=== PATIENT | female | born 1970 | race Caucasian/White ===

== ENCOUNTER 2016-05-03 20:15 | Emergency (ER) | payer SELFPAY ==
[2016-05-03 20:30] VITALS: BP 141/81
[2016-05-03] MEDS ORDERED: Azithromycin TAB* 250 MG PO ONE (22:10)
--- NOTE | 2016-05-03 22:25 | UC ---
Throat Pain/Nasal Josiah HPI - HPI Summary HPI Summary: RIGHT EAR PAIN SORE THROAT AND WHIOTE SPOTS IN RIGHT THROAT FOR THREE DAYS - History of Current Complaint Chief Complaint: UCRespiratory Stated Complaint: ST,EAR,CONGEST Time Seen by Provider: 05/03/16 21:14 Hx Obtained From: Patient Hx Last Menstrual Period: 11/03/15 Onset/Duration: Sudden Onset, Lasting Days, Still Present Severity: Moderate Cough: None Associated Signs & Symptoms: Positive: Dysphagia, Hoarseness - Epiglottits Risk Factors Epiglottis Risk Factors: Negative - Allergies/Home Medications Allergies/Adverse Reactions: Allergies Allergy/AdvReac Type Severity Reaction Status Date / Time Amoxicillin Allergy Hives Verified 05/03/16 20:31 Ampicillin Allergy Hives Verified 05/03/16 20:31 Penicillins Allergy Hives Verified 05/03/16 20:31 Sulfa Drugs Allergy Hives Verified 05/03/16 20:31 PMH/Surg Hx/FS Hx/Imm Hx Previously Healthy: Yes Endocrine History Of: Denies: Diabetes, Thyroid Disease Cardiovascular History Of: Denies: Cardiac Disorders, Hypertension Respiratory History Of: Denies: COPD, Asthma GI/ History Of: Denies: Ulcer Psychological History Of: Reports: Anxiety - Surgical History Surgical History: Yes Surgery Procedure, Year, and Place: ovarian cyst removed. csection - Family History Known Family History: Positive: Cardiac Disease, Hypertension, Diabetes Family History: NON CONTRIBUTORY - Social History Occupation: Employed Full-time Lives: With Family Alcohol Use: None Substance Use Type: None Smoking Status (MU): Light Every Day Tobacco Smoker Type: Cigarettes Amount Used/How Often: 1/2 ppd Length of Time of Smoking/Using Tobacco: since age 16 Have You Smoked in the Last Year: Yes Cessation Counseling: Patient Advised to Stop - Immunization History Most Recent Influenza Vaccination: never Review of Systems Constitutional: Negative Skin: Negative Eyes: Negative ENT: Sore Throat, Ear Ache Respiratory: Negative Cardiovascular: Negative Gastrointestinal: Negative Genitourinary: Negative Motor: Negative Neurovascular: Negative Musculoskeletal: Negative Neurological: Negative Psychological: Negative All Other Systems Reviewed And Are Negative: Yes Physical Exam Triage Information Reviewed: Yes Appearance: Well-Appearing, No Pain Distress, Well-Nourished Vital Signs: Initial Vital Signs Temp 98.9 F 05/03/16 20:26 Pulse 110 05/03/16 20:26 Resp 18 05/03/16 20:26 BP 141/81 05/03/16 20:26 Pulse Ox 100 05/03/16 20:26 Vital Signs Reviewed: Yes Eye Exam: Normal Eyes: Positive: Conjunctiva Clear ENT: Positive: TM dull, TM red, Tonsillar swelling, Tonsillar exudate Dental Exam: Normal Neck exam: Normal Neck: Positive: Supple, Nontender, Enlarged Nodes @ Respiratory Exam: Normal Respiratory: Positive: Chest non-tender, Lungs clear, Normal breath sounds, No respiratory distress, No accessory muscle use Cardiovascular Exam: Normal Cardiovascular: Positive: RRR, No Murmur Abdominal Exam: Normal Abdomen Description: Positive: Nontender, No Organomegaly Musculoskeletal Exam: Normal Neurological Exam: Normal Psychological Exam: Normal Psychological: Positive: Normal Response To Family Skin Exam: Normal Throat Pain/Nasal Course/Dx - Differential Dx/Diagnosis Differential Diagnosis/HQI/PQRI: Otitis Media, Pharyngitis, Sinusitis, URI Provider Diagnoses: RIGHT OTITIS MEDIA. TONSILLITIS Discharge - Discharge Plan Condition: Stable Disposition: HOME Prescriptions: Azithromycin TAB* [Zithromax TAB (Z-FCO) 250 mg #6 tabs] 250 mg PO DAILY #4 tab Patient Education Materials: Otitis Media (ED), Tonsillitis (ED) Referrals: Adalid Ragsdale NP [Primary Care Provider] -
== END 2016-05-03 22:21 | disposition home or self-care (01) ==
LOC: UCEAST 20:15
DX: H66.91 Otitis media, unspecified, right ear (principal); J03.90 Acute tonsillitis, unspecified; Z88.2 Allergy status to sulfonamides; Z88.0 Allergy status to penicillin; F17.210 Nicotine dependence, cigarettes, uncomplicated
CPT/HCPCS: 87651; 99212; A9270-GY; G0463

== ENCOUNTER 2016-07-18 16:34 | Observation (INO) | payer BC ==
[2016-07-18] MEDS ORDERED: NS 0.9% 1000 ML* 1,000 ML IV SCH (17:15)
[2016-07-18] MEDS ORDERED: Sucralfate TAB* 1 GM PO ONE (17:32)
[2016-07-18] MEDS ORDERED: Ondansetron INJ* 2 MG/ML VIAL IV ONE ×2 (17:32→19:26)
[2016-07-18 18:30] LABS: Hematocrit 38 % (35-47); Hemoglobin 12.5 g/dl (12.0-16.0); Mean Corpuscular HGB Conc 33 g/dl (31-36); Mean Corpuscular Hemoglobin 29 pg (27-31); Mean Corpuscular Volume 88 fL (80-97); Mean Platelet Volume 8 um3 (7.4-10.4); Red Blood Count 4.32 10^6/ul (4.0-5.4); Red Cell Distribution Width 14 % (10.5-15); White Blood Count 11.5 10^3/ul (3.5-10.8)
[2016-07-18 18:33] LABS: Add Diff/Slide Review? Slide Review Added; Comments Flag Yes
[2016-07-18 18:46] LABS: BUN/Creatinine Ratio 19.2 (8-20); C Reactive Protein 7.37 mg/L (< 5.00); Calcium 9.9 mg/dL (8.6-10.3); EGFR African American 164.7 (>60); EGFR Non-African American 128.1 (>60); Globulin 2.6 g/dL (2-4); Potassium 3.5 mmol/L (3.5-5.0); Total Bilirubin 0.5 mg/dL (0.2-1.0); Total Protein 6.6 g/dL (6.4-8.9)
[2016-07-18] MEDS ORDERED: Pantoprazole IV* 40 MG IV ONE (20:28)
[2016-07-18] MEDS ORDERED: HYDROmorphone* 1 MG/ML 1 ML SYR IV ONE (20:28)
--- NOTE | 2016-07-18 22:11 | RAD ---
Indication: RIGHT upper quadrant pain since yesterday. Comparison: No relevant prior exams available on the [facility]. Technique: RIGHT upper quadrant ultrasound. Report: Appropriate direction flow documented in the portal and hepatic veins. 16.8 cm liver is normal in echogenicity. Negative for focal hepatic lesions. Mild intrahepatic biliary dilatation. 9.0 mm common bile duct. No stones evident within the visualized common duct however the distal duct is not well visualized. Distended gallbladder with immobile approximate 2.7 cm stone at the gallbladder neck. 5.2 mm thickened gallbladder wall. Suggestion of biliary sludge at the fundus. No pericholecystic fluid evident. Negative for sonographic Bautista's sign. Mild prominence of the pancreatic duct at the visualized pancreatic body and tail measuring up to 2.5 mm diameter. Negative for ascites. 10.1 cm RIGHT kidney is unremarkable. IMPRESSION: Cholelithiasis with immobile stone at the gallbladder neck of gallbladder wall thickening as well as mild intra and extrahepatic biliary dilatation concerning for potential acute cholecystitis. Negative for pericholecystic fluid or sonographic Bautista's sign.
[2016-07-18] MEDS: HYDROmorphone* 1 MG/ML 1 ML SYR IV ONE ×2 (22:30→23:45)
[2016-07-18] MEDS ORDERED: HYDROmorphone* 1 MG/ML 1 ML SYR ONE (23:42)
[2016-07-18] MEDS ORDERED: HYDROmorphone* 1 MG/ML 1 ML SYR IV SLOW PU PRN (23:58)
[2016-07-18] MEDS ORDERED: Metoclopramide IV* 5 MG/ML 2 ML VIAL IV PRN (23:58)
[2016-07-19] MEDS ORDERED: Ciprofloxacin 400MG IVPREMIX(* 400 MG/200 ML BAG IVPB SCH ×2 (00:30→12:30)
[2016-07-19] MEDS ORDERED: metroNIDAZOLE IV 500 MG/100ML* 500 MG/100 ML BAG IVPB SCH ×2 (01:30→09:30)
[2016-07-19] MEDS: HYDROmorphone* 1 MG/ML 1 ML SYR IV PRN ×2 (01:54→04:26)
[2016-07-19] MEDS ORDERED: Metoclopramide IV* 5 MG/ML 2 ML VIAL IV PRN (02:52)
[2016-07-19] MEDS ORDERED: Ketorolac INJ* 15 MG/ML 1 ML VIAL IV PUSH ONE (08:52)
[2016-07-19] MEDS ORDERED: Ketorolac INJ* 30 MG/ML 1 ML VIAL ONE ×2 (08:54→12:32)
--- NOTE | 2016-07-19 10:38 | HP ---
CC: Adalid Ragsdale NP, [place], [place] DATE OF ADMISSION: 07/18/2016. DATE OF SURGERY: 07/19/2016. This patient was seen in room #346 at [facility] on July. CHIEF COMPLAINT: Abdominal pain. HISTORY OF PRESENT ILLNESS: The patient is a 46-year-old female who went to the [facility] yesterday complaining of abdominal pain. She states she was discharged home, but because the ab dominal pain worsened and it was associated with being nauseated, she went to [facility] Emergency Room. Gallbladder ultrasound was consistent with cholelithiasis with an immobile stone me asuring 2.7 cm at the gallbladder neck, gallbladder wall thickening, no pericholecystic fluid, mild biliary dilatation concerning for acute cholecystitis. She denied any vomiting. She had a formed b rown stool 07/18/2016. She denies any diarrhea. She denies any change in the color of urine or sto ol and denies any dysuria. She last ate solid food 07/17/2016. She has had no previous si milar episodes. Previous abdominal surgery includes section and open ovarian cystectomy. Mikel baxter was admitted for IV antibiotics and IV hydration. PAST MEDICAL HISTORY: Significant for smoking, migraine headaches, and gastritis treated with Ranit idine five months ago. PAST SURGICAL HISTORY: section 2006 in [place], open ovarian cystectomy at age 20. MEDICATIONS: 1. Ranitidine prn. 2. Excedrin prn. ALLERGIES: AMPICILLIN, AMOXICILLIN, AND SULFA. FAMILY HISTORY: Her brother had a cholecystectomy. No known anesthesia complications, bleeding ten dencies or blood clots in the family. SOCIAL HISTORY: She is single. She has two children, ages 23 and 13. She is a smoker of a half-a- pack of cigarettes per day for the past 30 years. She denies the use of alcohol or other substances . REVIEW OF SYSTEMS: Constitutional: No recent weight loss. No recent viral illnesses. Cardiovascu lar: No history of chest pain, palpitations, pressure or hypertension. Pulmonary: She is a smoker . No history of bronchitis or pneumonia. GI: She reports being diagnosed with "acute gastritis" fi ve months ago, treated with Ranitidine, which she takes occasionally. She denies any diarrhea, cons tipation or change in the color of stool. Genitourinary: Denies any dysuria, tea colored urine or history of kidney stones. Musculoskeletal: Denies any conditions or complaints. Neurologic: Charlie es any conditions or complaints. She denies any history of deep vein thrombosis or pulmonary emboli sm. Denies any history of anesthesia complications. Denies any bleeding tendencies and has never r eceived a blood transfusion. She is currently having her menstrual period. PHYSICAL EXAMINATION GENERAL: The patient is a 46-year-old female, well-developed, well-nourished, complaining of migrai ne headache. SKIN: Warm, dry, intact, anicteric. VITAL SIGNS: Height 5'4", weight 120 pounds. Blood pressure 116/63, pulse 76 and regular, respirat ory rate 16, temperature 98.2 tympanic. HEENT: Benign, anicteric sclerae. NECK: Supple. No cervical lymphadenopathy. BACK: No CVA tenderness. LUNGS: Breath sounds bilaterally clear and equal. HEART: Regular rate and rhythm. No murmurs or rubs appreciated. ABDOMEN: Active bowel sounds. Soft, flat, nontender throughout. No guarding. No obvious masses. Well-healed scars in the lower abdomen. No obvious organomegaly or evidence of hernia. EXTREMITIES: Warm without edema or skin ulceration. PELVIC: Exam deferred. RECTAL: Exam deferred. NEUROLOGIC: Alert and oriented times three. LABORATORY DATA: White blood cell count 11.5. Liver function test within normal limits. Serum pr egnancy negative. Gallbladder ultrasound consistent with cholelithiasis with an immobile stone at the gallbladder neck . Gallbladder wall thickening and mild biliary dilatation. IMPRESSION: Symptomatic cholelithiasis. PLAN: Per Dr. Benitez to the operating room today for a laparoscopic cholecystectomy. Dr. Benitez di scussed the nature of the surgical procedure, the relevant risks and benefits, the typical postopera tive care and recovery, and the patient has had a chance to ask questions and agrees with the plan. Time spent, with greater than 50 percent of it in direct [id number] contact with the patient, was one hour. LORNA LEACH NP [id number]/CPS #: [id number]
[2016-07-19] MEDS ORDERED: Clindamycin 900 MG IVPREMIX(* 900 MG/50 ML SDV IV ONE ×2 (11:34→13:23)
[2016-07-19] MEDS ORDERED: Bupivacaine 0.25% EPI 200,000* 30 ML SDV ONE (11:37)
[2016-07-19] MEDS ORDERED: Propofol* 10 MG/ML 20 ML BTL IV PUSH ONE (11:43)
[2016-07-19] MEDS ORDERED: Atracurium* 10 MG/ML 10 ML VIAL ONE (11:44)
[2016-07-19] MEDS ORDERED: fentaNYL* 50 MCG/ML 2 ML VIAL (100 MCG VIAL) ONE ×3 (11:44→13:36)
[2016-07-19] MEDS ORDERED: Midazolam* 1 MG/ML 5 ML VIAL (5 MG) ONE (11:45)
[2016-07-19] MEDS ORDERED: Dexamethasone IV* 4 MG/ML 1 ML (4 MG) ONE (12:07)
[2016-07-19] MEDS ORDERED: Ondansetron INJ* 2 MG/ML VIAL IV PRN (12:29)
[2016-07-19] MEDS ORDERED: HYDROmorphone* 1 MG/ML 1 ML SYR IV PRN (12:29)
[2016-07-19] MEDS ORDERED: oxyCODONE TAB* 5 MG TAB PO PRN (12:29)
[2016-07-19] MEDS ORDERED: fentaNYL* 50 MCG/ML 2 ML VIAL (100 MCG VIAL) IV PRN (12:29)
[2016-07-19] MEDS ORDERED: DiMENhydriNATE IV* 50 MG/ML VIAL IV PUSH PRN (12:29)
[2016-07-19] MEDS ORDERED: Ondansetron INJ* 2 MG/ML VIAL ONE (12:32)
[2016-07-19] MEDS ORDERED: Glycopyrrolate IV* 0.2 MG/ML 1 ML VIAL ONE (13:06)
[2016-07-19] MEDS ORDERED: Neostigmine Methylsulfate* 2 MG/2 ML SYRINGE ONE (13:06)
[2016-07-19] MEDS ORDERED: HYDROmorphone* 1 MG/ML 1 ML SYR ONE (13:36)
[2016-07-19] MEDS ORDERED: DiMENhydriNATE IV* 50 MG/ML VIAL ONE (13:41)
[2016-07-19 14:47] VITALS: BP 149/73
--- NOTE | 2016-07-20 00:41 | OP ---
DATE OF OPERATION: 07/19/16 - ROOM #346 DATE OF : 74 SURGEON: Brett Benitez MD EMBOSSING TOOLSETTER: Ana Jimenez NP ANESTHESIOLOGIST: Dr. Maki. ANESTHESIA: General anesthetic, local infiltration. PRE-OP DIAGNOSIS: Symptomatic cholelithiasis. POST-OP DIAGNOSES: Symptomatic cholelithiasis with acute cholecystitis. OPERATIVE PROCEDURE: Laparoscopic cholecystectomy. DESCRIPTION OF PROCEDURE: The patient was supine on the operative table. After adequate general anesthetic, compression stockings, Dedra Hugger warmer, and intravenous antibiotics, the abdomen was prepped and draped in the sterile fashion. Local infiltrative anesthesia was carried out in the umbilicus. A small umbilical incision was created. Blunt port cannula was placed. Insufflation was carried out with carbon dioxide. Additional cannulae; 12 mm subxiphoid, 5 mm right upper quadrant and right anterior axillary line were placed through small stab wounds under direct vision. The gallbladder was acutely inflamed and quite edematous. The areolar tissue was taken down off the cystic duct and cystic artery, which were readily identified, clipped and divided. The gallbladder was taken off the liver bed using electro-cautery. Again it was quite edematous, but the plane really was not too bad. There was a white bile forthcoming and the gallbladder was evacuated and placed into retrieval bag and brought out through the subxiphoid site, which needed to be enlarged for that purpose. The liver bed was made hemostatic with electrocautery and irrigation was carried out with warm saline solution. Free fluid was suctioned out. Hemostasis was again confirmed. The cannulae were removed. The two larger incisions were closed with 0 Polysorb and skin with 5- 0 Polysorb followed by Steri-Strips. She tolerated the procedure well, was awakened, and brought to Recovery in good condition. There were no complications. No drains. Pathologic specimen was gallbladder. Sponge and instrument counts were correct. Estimated blood loss was 100 mL. CC: Adalid Ragsdale NP* [id number]/[facility] #: [id number] [facility]
--- NOTE | 2016-07-22 17:22 | ED ---
Jeannie Fung Alok, scribed for Stuart Roberts MD on 07/18/16 at 1737 . Abdominal Pain/Female - HPI Summary HPI Summary: 46F presents to the ED from [facility] with a sudden onset of epigastric pain late last night at 2330. Pt adds nausea all day today and hasnt eaten. Pt last had similar symptoms 5 months ago for which Tums helped alleviate. Pt took Tums today which had no efect. PSHx includes caesarean section. PMHx includes h/o ovarian cysts. Pt states allergies to Amoxicillin, Ampicillin, and Sulfa Drugs. - History of Current Complaint Chief Complaint: EDAbdPain Stated Complaint: ABD PAIN Time Seen by Provider: 07/18/16 17:21 Hx Obtained From: Patient Hx Last Menstrual Period: 07/16/16 Onset/Duration: Sudden Onset, Lasting Hours, Still Present Timing: Constant Severity Initially: Moderate Severity Currently: Moderate Pain Intensity: 8 Pain Scale Used: 0-10 Numeric Location: Epigastric Alleviating Factor(s): Nothing Associated Signs and Symptoms: Positive: Nausea Allergies/Adverse Reactions: Allergies Allergy/AdvReac Type Severity Reaction Status Date / Time Amoxicillin Allergy Hives Verified 07/18/16 16:39 Ampicillin Allergy Hives Verified 07/18/16 16:39 Ciprofloxacin [From Cipro] Allergy Hives Verified 07/19/16 09:53 Penicillins Allergy Hives Verified 07/18/16 16:39 Sulfa Drugs Allergy Hives Verified 07/18/16 16:39 PMH/Surg Hx/FS Hx/Imm Hx Endocrine/Hematology History: Denies: Hx Diabetes, Hx Thyroid Disease Cardiovascular History: Denies: Hx Hypertension Respiratory History: Denies: Hx Asthma, Hx Chronic Obstructive Pulmonary Disease (COPD) GI History: Denies: Hx Ulcer Psychiatric History: Reports: Hx Anxiety - Surgical History Surgery Procedure, Year, and Place: ovarian cyst removed. Infectious Disease History: No Infectious Disease History: Denies: Hx Clostridium Difficile, Hx Hepatitis, Hx Human Immunodeficiency Virus (HIV), Hx of Known/Suspected MRSA, History Other Infectious Disease, Traveled Outside the [place] in Last 30 Days - Family History Known Family History: Positive: Cardiac Disease, Hypertension, Diabetes - Social History Occupation: Employed Full-time Alcohol Use: None Substance Use Type: Reports: None Smoking Status (MU): Heavy Every Day Tobacco Smoker Type: Cigarettes Amount Used/How Often: 1/2 ppd Length of Time of Smoking/Using Tobacco: since age 16 Have You Smoked in the Last Year: Yes Review of Systems Negative: Fever Positive: Abdominal Pain, Nausea All Other Systems Reviewed And Are Negative: Yes Physical Exam Triage Information Reviewed: Yes Vital Signs On Initial Exam: Initial Vitals Temp Pulse Resp BP Pulse Ox 98.5 F 99 18 131/90 100 07/18/16 16:36 07/18/16 16:36 07/18/16 16:36 07/18/16 16:36 07/18/16 16:36 Vital Signs Reviewed: Yes Appearance: Positive: Well-Appearing, No Pain Distress Skin: Positive: Warm, Skin Color Reflects Adequate Perfusion, Dry Head/Face: Positive: Normal Head/Face Inspection Eyes: Positive: Normal ENT: Positive: Normal ENT inspection Neck: Positive: Supple, Nontender Respiratory/Lung Sounds: Positive: Clear to Auscultation, Breath Sounds Present Cardiovascular: Positive: RRR Abdomen Description: Positive: Soft, Other: - Mild epigastric tenderness Bowel Sounds: Positive: Present Musculoskeletal: Positive: Normal Neurological: Positive: Normal Psychiatric: Positive: Normal, Affect/Mood Appropriate - Sara Coma Scale Coma Scale Total: 15 Diagnostics - Vital Signs Vital Signs Temp Pulse Resp BP Pulse Ox 07/18/16 16:52 98.5 F 99 18 131/90 100 07/18/16 16:36 98.5 F 99 18 131/90 100 - Laboratory Lab Results: Lab Results 07/18/16 07/18/16 07/18/16 Range/Units 18:20 18:20 18:20 WBC 11.5 H (3.5-10.8) 10^3/ul RBC 4.32 (4.0-5.4) 10^6/ul Hgb 12.5 (12.0-16.0) g/dl Hct 38 (35-47) % MCV 88 (80-97) fL MCH 29 (27-31) pg MCHC 33 (31-36) g/dl RDW 14 (10.5-15) % Plt Count 223 (150-450) 10^3/ul MPV 8 (7.4-10.4) um3 Neut % (Auto) 79.4 (38-83) % Lymph % (Auto) 8.9 L (25-47) % Jewell % (Auto) 3.4 (1-9) % Eos % (Auto) 1.6 (0-6) % Baso % (Auto) 6.7 H (0-2) % Absolute Neuts (auto) 9.2 H (1.5-7.7) 10^3/ul Absolute Lymphs (auto) 1.0 (1.0-4.8) 10^3/ul Absolute Monos (auto) 0.4 (0-0.8) 10^3/ul Absolute Eos (auto) 0.2 (0-0.6) 10^3/ul Absolute Basos (auto) 0.8 H (0-0.2) 10^3/ul Absolute Nucleated RBC 0 10^3/ul Nucleated RBC % 0 INR (Anticoag Therapy) 1.02 (0.89-1.11) Sodium 137 (133-145) mmol/L Potassium 3.5 (3.5-5.0) mmol/L Chloride 104 (101-111) mmol/L Carbon Dioxide 25 (22-32) mmol/L Anion Gap 8 (2-11) mmol/L BUN 10 (6-24) mg/dL Creatinine 0.52 (0.51-0.95) mg/dL Est GFR ( Amer) 164.7 (>60) Est GFR (Non-Af Amer) 128.1 (>60) BUN/Creatinine Ratio 19.2 (8-20) Glucose 115 H (70-100) mg/dL Lactic Acid (0.5-2.0) mmol/L Calcium 9.9 (8.6-10.3) mg/dL Total Bilirubin 0.50 (0.2-1.0) mg/dL AST 11 L (13-39) U/L ALT 7 (7-52) U/L Alkaline Phosphatase 52 (34-104) U/L C-Reactive Protein 7.37 H (< 5.00) mg/L Total Protein 6.6 (6.4-8.9) g/dL Albumin 4.0 (3.2-5.2) g/dL Globulin 2.6 (2-4) g/dL Albumin/Globulin Ratio 1.5 (1-3) Lipase 17 (11.0-82.0) U/L Beta HCG, Quant 0.95 mIU/mL 05/10/17 Range/Units 18:20 WBC (3.5-10.8) 10^3/ul RBC (4.0-5.4) 10^6/ul Hgb (12.0-16.0) g/dl Hct (35-47) % MCV (80-97) fL MCH (27-31) pg MCHC (31-36) g/dl RDW (10.5-15) % Plt Count (150-450) 10^3/ul MPV (7.4-10.4) um3 Neut % (Auto) (38-83) % Lymph % (Auto) (25-47) % Jewell % (Auto) (1-9) % Eos % (Auto) (0-6) % Baso % (Auto) (0-2) % Absolute Neuts (auto) (1.5-7.7) 10^3/ul Absolute Lymphs (auto) (1.0-4.8) 10^3/ul Absolute Monos (auto) (0-0.8) 10^3/ul Absolute Eos (auto) (0-0.6) 10^3/ul Absolute Basos (auto) (0-0.2) 10^3/ul Absolute Nucleated RBC 10^3/ul Nucleated RBC % INR (Anticoag Therapy) (0.89-1.11) Sodium (133-145) mmol/L Potassium (3.5-5.0) mmol/L Chloride (101-111) mmol/L Carbon Dioxide (22-32) mmol/L Anion Gap (2-11) mmol/L BUN (6-24) mg/dL Creatinine (0.51-0.95) mg/dL Est GFR ( Amer) (>60) Est GFR (Non-Af Amer) (>60) BUN/Creatinine Ratio (8-20) Glucose (70-100) mg/dL Lactic Acid 0.6 (0.5-2.0) mmol/L Calcium (8.6-10.3) mg/dL Total Bilirubin (0.2-1.0) mg/dL AST (13-39) U/L ALT (7-52) U/L Alkaline Phosphatase (34-104) U/L C-Reactive Protein (< 5.00) mg/L Total Protein (6.4-8.9) g/dL Albumin (3.2-5.2) g/dL Globulin (2-4) g/dL Albumin/Globulin Ratio (1-3) Lipase (11.0-82.0) U/L Beta HCG, Quant mIU/mL Result Diagrams: 07/18/16 18:20 07/18/16 18:20 Lab Statement: Any lab studies that have been ordered have been reviewed, and results considered in the medical decision making process. - Additional Comments Diagnostic Additional Comments: Gallbladder US - IMPRESSION: Cholelithiasis with immobile stone at the gallbladder neck of gallbladder wall thickening as well as mild intra and extrahepatic biliary dilatation concerning for potential acute cholecystitis. Negative for pericholecystic fluid or sonographic Bautista's sign. Abdominal Pain Fem Course/Dx - Course Course Of Treatment: Ms. Miller presented with about 20 hours of pain in the epigastrium. She was not tender in the RUQ but was tender in the epigastrium. She did not improve with GI meds and her labs were not very remarkable with only very slight increased CRP and WBCs. An U/S was obtained and showed an early cholecyctitis. - Diagnoses Provider Diagnoses: Cholecystitis - Provider Notifications Discussed Care Of Patient With: Dr. Gómez (Surgery) @ [id number] - Discussed pt condition and test results. Will admit pt Discharge - Discharge Plan Condition: Stable Disposition: ADMITTED TO [facility] documentation as recorded by the Jeannie buchanan Alok accurately reflects the service I personally performed and the decisions made by me, Stuart Roberts MD.
--- NOTE | 2016-07-25 11:30 | DS ---
DISCHARGE SUMMARY: DATE OF ADMISSION: 07/18/16 DATE OF DISCHARGE: 07/19/16 HISTORY: Patient is a 46-year-old female, came to the hospital the evening of 07/18/16 with evidence of cholecystitis. She was kept overnight in the hospital and taken to the operating room the next morning for a laparoscopic cholecystectomy. She had an uneventful course with rapid recovery and was discharged home the same afternoon. She is discharged home with instructions and will follow up in the office. Her pathology report did show evidence of cholelithiasis and cholecystitis. CC: Dr. Benitez; Adalid Ragsdale, DOMONIQUE* [id number]/[facility] #: [id number] MTDD
== END 2016-07-19 14:40 | disposition home or self-care (01) | DRG 263 ==
LOC: ED 16:34 → SSU 22:20 → INTOOBSV 22:20
PROVIDERS: ADMIT Surgery; ATTEND Surgery
DX: K80.00 Calculus of gallbladder with acute cholecystitis without obstruction (principal); F41.9 Anxiety disorder, unspecified; G43.909 Migraine, unspecified, not intractable, without status migrainosus; Z88.0 Allergy status to penicillin; Z88.2 Allergy status to sulfonamides; F17.210 Nicotine dependence, cigarettes, uncomplicated; Z82.49 Family history of ischemic heart disease and other diseases of the circulatory system; Z83.3 Family history of diabetes mellitus; K21.9 Gastro-esophageal reflux disease without esophagitis; Z32.02 Encounter for pregnancy test, result negative; R10.9 Unspecified abdominal pain
CPT/HCPCS: 36415; 76705; 80053; 81003; 83605; 83690; 84702; 85025; 85610; 86140; 88304; 94760; 96374; 96375; 96376; 99212; 99284; 99406; A9270-GY; G0378; G0463; J0744; J1100; J1170; J1240; J1885; J2250; J2405; J2704; J2765; J3010

== ENCOUNTER 2017-04-28 09:17 | Emergency (ER) | payer SELFPAY ==
[2017-04-28 09:30] VITALS: BP 129/81
--- NOTE | 2017-04-28 11:55 | UC ---
Maria Del Rosario Fung Gabriel, scribed for Kassandra Lr DO on 04/28/17 at 1009 . Throat Pain/Nasal Josiah HPI - HPI Summary HPI Summary: This patient is a 47 year old F presenting to [facility] with a chief complaint of head pressure since yesterday. The patient rates the pain 8/10 in severity. Patient reports rhinorrhea, right sided ear pain/face pain, post nasal drip, and maxillary sinus pressure. Patient denies fever, sore throat, diaphoresis, chills, n/v/d, and ABD pain. Pt took Sudafed and Excedrin at 0720 today. - History of Current Complaint Chief Complaint: UCGeneralIllness Stated Complaint: sinus congestion, and ear ache Time Seen by Provider: 04/28/17 09:55 Hx Obtained From: Patient Hx Last Menstrual Period: 04/24/17 Onset/Duration: Still Present Severity: Moderate Pain Intensity: 8 Pain Scale Used: 0-10 Numeric Associated Signs & Symptoms: Positive: Negative - rhinorrhea, right sided ear pain/face pain, post nasal drip, and maxillary sinus pressure, Other - fever, sore throat, diaphoresis, chills, n/v/d, and ABD pain - Allergies/Home Medications Allergies/Adverse Reactions: Allergies Allergy/AdvReac Type Severity Reaction Status Date / Time MS Amoxicillin [Amoxicillin] Allergy Hives Verified 04/28/17 09:30 MS Ampicillin [Ampicillin] Allergy Hives Verified 04/28/17 09:30 MS Ciprofloxacin [From Cipro] Allergy Hives Verified 04/28/17 09:30 MS Penicillins [Penicillins] Allergy Hives Verified 04/28/17 09:30 MS Sulfa Drugs [Sulfa Drugs] Allergy Hives Verified 04/28/17 09:30 Home Medications: Home Medications NK [No Home Medications Reported] 04/28/17 [History Confirmed 04/28/17] PMH/Surg Hx/FS Hx/Imm Hx Neurological History: Migraine Other History Of: HIV, Hepatitis B - Surgical History Surgical History: Yes Surgery Procedure, Year, and Place: ovarian cyst removed. . choly 2016 - Family History Known Family History: Positive: Cardiac Disease, Hypertension, Diabetes Negative: Respiratory Disease, Seizure Disorder Family History: NON CONTRIBUTORY - Social History Alcohol Use: None Substance Use Type: None Smoking Status (MU): Heavy Every Day Tobacco Smoker Type: Cigarettes Amount Used/How Often: 1/2 ppd Length of Time of Smoking/Using Tobacco: since age 16 Have You Smoked in the Last Year: Yes - Immunization History Most Recent Influenza Vaccination: never Most Recent Pneumonia Vaccination: never Review of Systems ENT: Ear Ache, Nasal Discharge, Sinus Congestion, Sinus Pain/Tenderness, Other - post nasal drip Neurological: Headache All Other Systems Reviewed And Are Negative: Yes Physical Exam Triage Information Reviewed: Yes Vital Signs: Initial Vital Signs Temp 98.9 F 04/28/17 09:24 Pulse 110 04/28/17 09:24 Resp 18 04/28/17 09:24 BP 129/81 04/28/17 09:24 Pulse Ox 100 04/28/17 09:24 Vital Signs Reviewed: Yes - Additional Comments Appearance: Well-Appearing, Mild to moderate pain distress Eyes: conjunctiva clear, no discharge ENT: Hearing grossly normal, no muffled/hoarse voice. (If she looks) TMs normal , negative tonsillar swelling, negative tonsillar exudate, negative trismus. ( If no otoscope write in for ENT: Hearing grossly normal, normal voice). Neck: Normal, Supple Respiratory/Lung Sounds: Lungs clear, Normal breath sounds, No respiratory distress, No accessory muscle use Cardiovascular: RRR, No murmur Abdomen (if she checks): Nontender, Soft, no guarding, not distended Bowel Sounds (if she checks): Present Musculoskeletal: Normal Neurological: Alert, muscle tone normal Psychiatric:Normal, age appropriate behavior Skin: Normal, Warm, Dry, Normal color Throat Pain/Nasal Course/Dx - Course Assessment/Plan: Dx sinusitis. Patient will be discharged and follow up from PCP. The patient is agreeable with this plan. Medications reviewed. Allergies reviewed. The patient has been encouraged to quit smoking. - Differential Dx/Diagnosis Provider Diagnoses: sinusitis Discharge - Discharge Plan Condition: Stable Disposition: HOME Patient Education Materials: Sinusitis (ED) Referrals: Adalid Rgasdale NP [Primary Care Provider] - 5 Days Additional Instructions: TRY USING THE NETTI POT IN THE MORNINGS DISCUSSED. YOU MUST ALWAYS USE CLEAN WATER. REMEMBER, POSTURE IS AN IMPORTANT FACTOR IN SINUS DRAINAGE. MOVE YOUR NECK, BREATHE. YOU MAY FIND THAT SYMPTOMS MIGHT IMPROVE MORE RAPIDLY WITH ACUPUNCTURE. The documentation as recorded by the Maria Del Rosario buchanan Gabriel accurately reflects the service I personally performed and the decisions made by me, Kassandra Lr DO.
== END 2017-04-28 10:30 | disposition home or self-care (01) ==
LOC: UCEAST 09:17
DX: J32.9 Chronic sinusitis, unspecified (principal); F17.210 Nicotine dependence, cigarettes, uncomplicated; Z88.0 Allergy status to penicillin; Z88.2 Allergy status to sulfonamides
CPT/HCPCS: 99212; G0463

== ENCOUNTER 2018-05-22 08:57 | Emergency (ER) | payer SELFPAY ==
[2018-05-22 09:15] VITALS: BP 116/79
[2018-05-22 10:21] LABS: Influenza A Molecular NEGATIVE (Negative); Influenza B Molecular NEGATIVE (Negative)
--- NOTE | 2018-05-22 10:26 | UC ---
Respiratory Complaint HPI - HPI Summary HPI Summary: 2 wks of a 'head cold' which she feels was getting better. Last night started w / hoarseness which has since resolved, coughing in chest, fever/chills. Has sick contacts at work. nothing makes it better/worse. has tried few otc meds but these symptoms just started and shes not sure which is working. - History of Current Complaint Chief Complaint: UCGeneralIllness Stated Complaint: FLU LIKE SYMP Time Seen by Provider: 05/22/18 09:53 Hx Obtained From: Patient Hx Last Menstrual Period: 05/08/18 Pain Intensity: 0 Associated Signs And Symptoms: Positive: Fever, Chills, URI. Negative: Dyspnea , Wheezing - Allergies/Home Medications Allergies/Adverse Reactions: Allergies Allergy/AdvReac Type Severity Reaction Status Date / Time ciprofloxacin [From Cipro] Allergy streak iup Verified 05/22/18 09:16 vein Penicillins Allergy Rash Verified 05/22/18 09:16 Sulfa (Sulfonamide Allergy Rash Verified 05/22/18 09:16 Antibiotics) PMH/Surg Hx/FS Hx/Imm Hx Previously Healthy: Yes Other History Of: HIV, Hepatitis B - Surgical History Surgical History: Yes Surgery Procedure, Year, and Place: ovarian cyst removed. . choly 2016 - Family History Known Family History: Positive: Cardiac Disease, Hypertension, Diabetes Negative: Respiratory Disease, Seizure Disorder Family History: NON CONTRIBUTORY - Social History Alcohol Use: None Substance Use Type: None Smoking Status (MU): Heavy Every Day Tobacco Smoker Type: Cigarettes Amount Used/How Often: 1/2 ppd Length of Time of Smoking/Using Tobacco: since age 16 Have You Smoked in the Last Year: Yes - Immunization History Most Recent Influenza Vaccination: never Most Recent Pneumonia Vaccination: never Review of Systems All Other Systems Reviewed And Are Negative: Yes Constitutional: Positive: Fever, Chills. Negative: Fatigue ENT: Positive: Sore Throat. Negative: Ear Ache, Sinus Congestion Respiratory: Positive: Cough. Negative: Shortness Of Breath Cardiovascular: Positive: Negative Motor: Negative: Weakness Musculoskeletal: Negative: Myalgia Neurological: Negative: Headache, Weakness Physical Exam Triage Information Reviewed: Yes Appearance: Well-Appearing Vital Signs: Initial Vital Signs Temp 98.7 F 05/22/18 09:11 Pulse 102 05/22/18 09:11 Resp 20 05/22/18 09:11 BP 116/79 05/22/18 09:11 Pulse Ox 98 05/22/18 09:11 Vital Signs Reviewed: Yes ENT: Positive: Pharynx normal, TMs normal, Uvula midline. Negative: Sinus tenderness Neck exam: Normal Respiratory Exam: Normal Cardiovascular Exam: Normal Neurological: Positive: Alert Skin: Negative: Rashes Respiratory Course/Dx - Course Course Of Treatment: 2 wks of a 'head cold' and then last night started w/ feverish chills, cough in her chest. She recently was tx'd w/ antibx for pneumonia of LLL. Today lungs are clear, vitals good. NEG. FOR RAPID FLU. We did discuss that if she felt student sob or worsening breathing she should go to ED. For now I will tx her w / albuterol as this can help in smokers. could be the beginning of a gen viral illness. - Differential Dx/Diagnosis Differential Diagnosis/HQI/PQRI: Asthma, Bronchitis Provider Diagnosis: Cough Discharge - Sign-Out/Discharge Documenting (check all that apply): Patient Departure All imaging exams completed and their final reports reviewed: No Studies - Discharge Plan Condition: Good Disposition: HOME Prescriptions: Albuterol HFA INHALER* [Ventolin HFA Inhaler*] 1 - 2 puff INH Q4H PRN #1 mdi PRN Reason: Cough Patient Education Materials: Cold Symptoms (ED) Referrals: Adalid Ragsdale NP [Primary Care Provider] - Additional Instructions: please follow up with your primary care if not improving. - Billing Disposition and Condition Condition: GOOD Disposition: Home
== END 2018-05-22 10:40 | disposition home or self-care (01) ==
LOC: UCEAST 08:57
DX: R05 Cough (principal); R50.9 Fever, unspecified; F17.210 Nicotine dependence, cigarettes, uncomplicated; Z88.1 Allergy status to other antibiotic agents; Z88.0 Allergy status to penicillin; Z88.2 Allergy status to sulfonamides
CPT/HCPCS: 99212; G0463

== ENCOUNTER 2018-09-15 13:47 | Emergency (ER) | payer BC ==
[2018-09-15 14:07] VITALS: BP 155/91
--- NOTE | 2018-09-15 14:21 | UC ---
Dizzy HPI HPI Summary: Patient is a 48-year-old femalewho presents to the urgent care with chief complaint of having dizziness, "I am filling like I am going to pass out". The patient reports that this morning she woke up sweating, weak, and dizziness. she reports that she took an Excedrin and she went to work. At work the symptoms worsen. Now she feels like she is going to pass out, and she is feeling palpitations, and not feeling well. She denies any chest pain or shortness of breath. She denies any nausea vomiting or diarrhea. She denies any headache. She reports that she hasn't menstrual cycle now however, she reports that she took a test 2 weeks ago and he was positive. She denies any abdominal cramping. - History Of Current Complaint Chief Complaint: UCDizziness Stated Complaint: CHILLS/SWEATS Time Seen by Provider: 09/15/18 14:07 Hx Obtained From: Patient Hx Last Menstrual Period: 09/15/18 Onset/Duration: Sudden Onset Severity Initially: Mild Severity Currently: Moderate Pain Intensity: 0 - Allergies/Home Medications Allergies/Adverse Reactions: Allergies Allergy/AdvReac Type Severity Reaction Status Date / Time ciprofloxacin [From Cipro] Allergy streak iup Verified 09/15/18 14:07 vein Penicillins Allergy Rash Verified 09/15/18 14:07 Sulfa (Sulfonamide Allergy Rash Verified 09/15/18 14:07 Antibiotics) Home Medications: Home Medications Aspirin/Acetaminophen/Caffeine [Excedrin Extra Strength Caplet] 1 tab PO ONCE PRN 09/15/18 [History Confirmed 09/15/18] Ranitidine HCl (Nf) [Zantac] 1 tab PO DAILY PRN 09/15/18 [History Confirmed 10/27] PMH/Surg Hx/FS Hx/Imm Hx Previously Healthy: Yes Other History Of: HIV, Hepatitis B - Surgical History Surgical History: Yes Surgery Procedure, Year, and Place: ovarian cyst removed. . choly 2016 - Family History Known Family History: Positive: Cardiac Disease, Hypertension, Diabetes Negative: Respiratory Disease, Seizure Disorder Family History: NON CONTRIBUTORY - Social History Alcohol Use: None Substance Use Type: None Smoking Status (MU): Heavy Every Day Tobacco Smoker Type: Cigarettes Amount Used/How Often: 1/2 ppd Length of Time of Smoking/Using Tobacco: since age 16 Have You Smoked in the Last Year: Yes Household Exposure Type: Cigarettes - Immunization History Most Recent Influenza Vaccination: never Most Recent Pneumonia Vaccination: never Review of Systems All Other Systems Reviewed And Are Negative: Yes Constitutional: Positive: Chills - diaphoretic Skin: Positive: Negative Eyes: Positive: Negative ENT: Positive: Negative Respiratory: Positive: Negative Cardiovascular: Positive: Palpitations Gastrointestinal: Positive: Negative Genitourinary: Positive: Negative Motor: Positive: Negative Neurovascular: Positive: Negative Musculoskeletal: Positive: Negative Neurological: Positive: Other - dizziness Psychological: Positive: Negative Is Patient Immunocompromised?: Yes Physical Exam - Summary Physical Exam Summary: VITAL SIGNS: Reviewed. GENERAL: Patient is a thin female who is lying comfortable in the stretcher. Patient is not in any acute respiratory distress. HEAD AND FACE: No signs of trauma. No ecchymosis, hematomas or skull depressions. No sinus tenderness. EYES: PERRLA, EOMI x 2, No injected conjunctiva, no nystagmus. EARS: Hearing grossly intact. Ear canals and tympanic membranes are within normal limits. MOUTH: Oropharynx within normal limits. NECK: Supple, trachea is midline, no adenopathy, no JVD, no carotid bruit, no c- spine tenderness, neck with full ROM. CHEST: Symmetric, no tenderness at palpation LUNGS: Clear to auscultation bilaterally. No wheezing or crackles. CVS: Regular rate and rhythm, S1 and S2 present, no murmurs or gallops appreciated. ABDOMEN: Soft, non-tender. No signs of distention. No rebound no guarding, and no masses palpated. Bowel sounds are normal. EXTREMITIES: FROM in all major joints, no edema, no cyanosis or clubbing. NEURO: Alert and oriented x 3. No acute neurological deficits. Speech is normal and follows commands. SKIN: Dry and warm Vital Signs: Initial Vital Signs Temp 100 F 09/15/18 13:56 Pulse 105 09/15/18 13:56 Resp 18 09/15/18 13:56 BP 155/91 09/15/18 13:56 Pulse Ox 99 09/15/18 13:56 Diagnostics - EKG Cardiac Rate: NL Cardiac Rhythm: Sinus: Normal ST Segment: Normal Dizzy Course/Dx - Course Course Of Treatment: EKG shows a normal sinus rhythm at [address] elevations. The patient continues to replace that she is feeling like she is going to pass out, therefore I believe that the patient would benefit of going to the ER for further workup and assessment. I offered the patient an ambulance transfer to however the patient declined. The patient's friend will be driving the patient to the emergency department. Patient is hemodynamically stable alert and oriented 3. - Differential Dx/Diagnosis Provider Diagnosis: Dizziness Discharge - Sign-Out/Discharge Documenting (check all that apply): Patient Departure All imaging exams completed and their final reports reviewed: No Studies - Discharge Plan Condition: Stable Disposition: HOME-RECOMMEND TO ED Patient Education Materials: Dizziness (ED) Referrals: Adalid Ragsdale NP [Primary Care Provider] - Additional Instructions: patient will be discharged to the emergency department The patient declined ambulance transfer. - Billing Disposition and Condition Condition: STABLE Disposition: Home-Recommend to ED
== END 2018-09-15 14:17 | disposition home health service (06) ==
LOC: UCEAST 13:47
DX: R42 Dizziness and giddiness (principal); R61 Generalized hyperhidrosis; R00.2 Palpitations; Z21 Asymptomatic human immunodeficiency virus [HIV] infection status; Z88.1 Allergy status to other antibiotic agents; Z88.0 Allergy status to penicillin; Z88.2 Allergy status to sulfonamides; F17.210 Nicotine dependence, cigarettes, uncomplicated
CPT/HCPCS: 93005; 99212; G0463

== ENCOUNTER 2018-09-15 14:39 | Emergency (ER) | payer BC ==
--- NOTE | 2018-09-15 15:10 | ED ---
Complex/Multi-Sys Presentation - HPI Summary HPI Summary: This pt is a 48 y/o female presenting to [facility] from [facility] c/o chills, feeling hot and cold, and intermittent nausea today. Pt reports she woke up this morning soaked in sweat, drenched, "felt like I had just gotten out of the shower." She notes she has been feeling hot and cold, with chills, lightheaded, shaky. Pt has been having intermittent nausea. Denies vomiting. Pt states palpitations earlier today, described as "heart pounding." Denies fever, urinary symptoms, constipation, diarrhea, swelling in LE, abd pain. She reports she took a home test 2 weeks ago that was positive. However, pt notes her period began 2 days ago. Pt took Excedrin for migraines this morning. - History Of Current Complaint Chief Complaint: EDDizziness Time Seen by Provider: 09/15/18 15:03 Hx Obtained From: Patient Onset/Duration: Lasting Hours, Still Present Timing: Hours Severity Currently: Moderate Severity Initially: Mild Location: Negative Aggravating Factor(s): nothing Alleviating Factor(s): nothing Associated Signs And Symptoms: Positive: Palpitations, Nausea, Other - POSITIVE : chills, diaphoresis, feeling hot and cold, shaky. NEGATIVE: urinary symptoms, constipation, swelling in LE.. Negative: Edema, Vomiting, Diarrhea, Abdominal Pain, Dysuria, Fever - Allergies/Home Medications Allergies/Adverse Reactions: Allergies Allergy/AdvReac Type Severity Reaction Status Date / Time ciprofloxacin [From Cipro] Allergy streak iup Verified 09/15/18 14:44 vein Penicillins Allergy Rash Verified 09/15/18 14:44 Sulfa (Sulfonamide Allergy Rash Verified 09/15/18 14:44 Antibiotics) PMH/Surg Hx/FS Hx/Imm Hx Endocrine/Hematology History: Denies: Hx Diabetes, Hx Thyroid Disease Cardiovascular History: Denies: Hx Hypertension Respiratory History: Denies: Hx Asthma, Hx Chronic Obstructive Pulmonary Disease (COPD) GI History: Reports: Hx Gall Bladder Disease - current visit, Hx Gastroesophageal Reflux Disease, Other GI Disorders - acute gastritis Denies: Hx Ulcer Sensory History: Denies: Hx Contacts or Glasses, Hx Hearing Aid Opthamlomology History: Denies: Hx Contacts or Glasses Neurological History: Reports: Hx Migraine Psychiatric History: Reports: Hx Anxiety - Surgical History Surgery Procedure, Year, and Place: ovarian cyst removed. . choly 2017 Infectious Disease History: No Infectious Disease History: Denies: Hx Clostridium Difficile, Hx Hepatitis, Hx Human Immunodeficiency Virus (HIV), Hx of Known/Suspected MRSA, History Other Infectious Disease, Traveled Outside the [place] in Last 30 Days - Family History Known Family History: Positive: Cardiac Disease, Hypertension, Diabetes Negative: Respiratory Disease, Seizure Disorder - Social History Alcohol Use: None Substance Use Type: Reports: None Smoking Status (MU): Light Every Day Tobacco Smoker Type: Cigarettes Amount Used/How Often: 1/2 ppd Length of Time of Smoking/Using Tobacco: since age 16 Have You Smoked in the Last Year: Yes Review of Systems Constitutional: Other - POSITIVE: feeling hot and cold, shaky Positive: Chills, Skin Diaphoresis. Negative: Fever Positive: Palpitations Positive: Nausea. Negative: Abdominal Pain, Vomiting, Diarrhea, Other - constipation Positive: no symptoms reported Negative: Edema - in LE Neurological: Other - POSITIVE: lightheadedness All Other Systems Reviewed And Are Negative: Yes Physical Exam - Summary Physical Exam Summary: Appearance: The patient is well-nourished in no acute distress and in no acute pain. Skin: The skin is warm and dry and skin color reflects adequate perfusion. HEENT: The head is normocephalic and atraumatic. The pupils are equal and reactive. The conjunctivae are clear and without drainage. Nares are patent and without drainage. Mouth reveals moist mucous membranes and the throat is without erythema and exudate. The external ears are intact. The ear canals are patent and without drainage. The tympanic membranes are intact. Neck: the neck is supple with full range of motion and non-tender. There are no carotid bruits. There is no neck vein distension. Respiratory: Chest is non-tender. Lungs are clear to auscultation and breath sounds are symmetrical and equal. Cardiovascular: Physiologically split S1. There is no murmur or rub auscultated. There is no peripheral edema and pulses are symmetrical and equal. Abdomen: The abdomen is soft and non-tender. There are normal bowel sounds heard in all four quadrants and there is no organomegaly palpated. Musculoskeletal: There is no back tenderness noted. Extremities are non-tender with full range of motion. There is good capillary refill. There is no peripheral edema or calf tenderness elicited. Neurological: Patient is alert and oriented to person, place and time. The patient has symmetrical motor strength in all four extremities. Cranial nerves are grossly intact. Deep tendon reflexes are symmetrical and equal in all four extremities. Psychiatric: The patient has an appropriate affect and does not exhibit any anxiety or depression. Triage Information Reviewed: Yes Vital Signs On Initial Exam: Initial Vitals Temp Pulse Resp BP Pulse Ox 98.5 F 92 16 152/96 99 09/15/18 14:41 09/15/18 14:41 09/15/18 14:41 09/15/18 14:41 09/15/18 14:41 Vital Signs Reviewed: Yes Diagnostics - Vital Signs Vital Signs Temp Pulse Resp BP Pulse Ox 09/15/18 14:41 98.5 F 92 16 152/96 99 - Laboratory Result Diagrams: 09/15/18 16:04 09/15/18 16:03 Lab Statement: Any lab studies that have been ordered have been reviewed, and results considered in the medical decision making process. Re-Evaluation - Re-Evaluation First Eval Re-Evaluation Time: 17:54 Comment: Reviewed results with the pt. She will be discharged home with follow up from her PCP. Complex Multi-Symp Course/Dx Course Of Treatment: Ms. Miller presented complaining that she woke up in a sweat this morning and has had chills and sweats during the day. She is afebrile on arrival, nontoxic in appearance and her vitals are stable. I sent labs while I gave her some fluid and these were within normal limits. This may be an early viral syndrome. I don't think anything dangerous is happening - Diagnoses Provider Diagnoses: Viral syndrome Discharge - Sign-Out/Discharge Documenting (check all that apply): Patient Departure - Discharge home Patient Received Moderate/Deep Sedation with Procedure: No - Discharge Plan Condition: Stable Disposition: HOME Patient Education Materials: Viral Syndrome (ED) Referrals: Adalid Ragsdale NP [Primary Care Provider] - Additional Instructions: Follow up with your primary care provider in 2-3 days. RETURN TO THE ED FOR ANY WORSENING OR NEW SYMPTOMS. - Billing Disposition and Condition Condition: STABLE Disposition: Home - Attestation Statements Document Initiated by Scribe: Yes Documenting Scribe: Jacey Reed Provider For Whom Scribe is Documenting (Include Credential): Stuart Roberts MD Scribe Attestation: I, Jacey Reed, scribed for Stuart Roberts MD on 09/15/18 at 1928. Scribe Documentation Reviewed: Yes Provider Attestation: The documentation as recorded by the scribvee, Jacey Reed accurately reflects the service I personally performed and the decisions made by me, Stuart Roberts MD Status of Scribe Document: Viewed
[2018-09-15] MEDS ORDERED: NS 0.9% 1000 ML** 1,000 ML IV ONE (15:15)
[2018-09-15 16:23] LABS: ABS Eosinophils 0.1 10^3/ul (0-0.6); ABS Lymphocytes 1.5 10^3/ul (1.0-4.8); ABS Monocytes 0.3 10^3/ul (0-0.8); ABS Neutrophils 5.9 10^3/ul (1.5-7.7); Eosinophil % 0.9 %; Hematocrit 38 % (35-47); Hemoglobin 12.3 g/dL (12.0-16.0); Lymphocyte % 19.3 %; Mean Corpuscular HGB Conc 32 g/dL (31-36); Mean Corpuscular Hemoglobin 29 pg (27-31); Mean Corpuscular Volume 90 fL (80-97); Mean Platelet Volume 7.5 fL (7.4-10.4); Nucleated Red Blood Cells % 0.1; Platelet Count 220 10^3/uL (150-450); Red Blood Count 4.27 10^6 /uL (3.70-4.87); Red Cell Distribution Width 15 % (10-15); White Blood Count 7.8 10^3/uL (3.5-10.8)
[2018-09-15 16:27] LABS: Urine Appearance Clear; Urine Bacteria Absent (Absent); Urine Bilirubin Negative (Negative); Urine Blood 3+ (Negative); Urine Color Straw; Urine Glucose Negative (Negative); Urine Ketones Trace (Negative); Urine Nitrite Negative (Negative); Urine Protein Negative (Negative); Urine Red Blood Cell Trace(0-2/hpf) (Absent); Urine Specific Gravity 1.005 (1.010-1.030); Urine Squamous Epithelial Cell Present (Absent); Urine Urobilinogen Negative (Negative); Urine White Blood Cell Trace(0-5/hpf) (Absent)
[2018-09-15 16:48] LABS: HCG Pregnancy 1.51 mIU/mL
[2018-09-15 16:50] LABS: Albumin 4.1 g/dL (3.2-5.2); Albumin/Globulin Ratio 1.6 (1-3); BUN/Creatinine Ratio 26.8 (8-20); C Reactive Protein 4.84 mg/L (<8.01); Calcium 9.1 mg/dL (8.6-10.3); EGFR Non-African American 116.5 (>60); Globulin 2.5 g/dL (2-4); Potassium 4.2 mmol/L (3.5-5.0); Total Bilirubin 0.5 mg/dL (0.2-1.0); Total Protein 6.6 g/dL (6.4-8.9)
[2018-09-15 17:22] LABS: TSH (Thyroid Stimulating Horm) 0.64 mcIU/mL (0.34-5.60)
[2018-09-15 18:16] VITALS: BP 138/82
== END 2018-09-15 18:14 | disposition home or self-care (01) ==
LOC: ED 14:39
DX: B34.9 Viral infection, unspecified (principal); F17.210 Nicotine dependence, cigarettes, uncomplicated; Z88.1 Allergy status to other antibiotic agents; Z88.0 Allergy status to penicillin; Z88.2 Allergy status to sulfonamides
CPT/HCPCS: 36415; 80053; 81003; 81015; 84443; 84484; 84702; 85025; 86140; 87086; 96360; 99282

== ENCOUNTER 2018-10-22 15:13 | Emergency (ER) | payer BC ==
[2018-10-22 16:20] LABS: ABS Eosinophils 0.2 10^3/ul (0-0.6); ABS Lymphocytes 1.6 10^3/ul (1.0-4.8); ABS Monocytes 0.3 10^3/ul (0-0.8); ABS Neutrophils 5.7 10^3/ul (1.5-7.7); Eosinophil % 2.2 %; Hematocrit 35 % (35-47); Lymphocyte % 20.3 %; Mean Corpuscular HGB Conc 34 g/dL (31-36); Mean Corpuscular Hemoglobin 30 pg (27-31); Mean Corpuscular Volume 89 fL (80-97); Mean Platelet Volume 6.8 fL (7.4-10.4); Platelet Count 282 10^3/uL (150-450); Red Blood Count 3.98 10^6 /uL (3.70-4.87); Red Cell Distribution Width 15 % (10-15); White Blood Count 7.9 10^3/uL (3.5-10.8)
--- NOTE | 2018-10-22 16:27 | ED ---
GI/ HPI - HPI Summary HPI Summary: 48 year female presents with intermittent abdominal pain for the past couple weeks. She states that seems it worse. She has had some episodes of nausea and vomiting. She is not currently having the pain. She states it feels like a gas pain. pain is in the center abdomen. He states this feels similar when she had her gallbladder removed. She denies any fevers. No diarrhea or constipation. No urinary symptoms. States she has a history of gastritis and feels similar but never this extreme amount of pain. She tried some Zantac without any relief. She has a follow-up with GI soon. - History of Current Complaint Chief Complaint: EDAbdPain Time Seen by Provider: 10/22/18 16:02 Stated Complaint: STOMACH PAINS X 2 WEEKS PER PT Hx Last Menstrual Period: 09/15/18 Pain Intensity: 0 - Additional Pertinent History Primary Care Physician: AMBROSIO - Allergy/Home Medications Allergies/Adverse Reactions: Allergies Allergy/AdvReac Type Severity Reaction Status Date / Time ciprofloxacin [From Cipro] Allergy streak iup Verified 10/22/18 15:20 vein Penicillins Allergy Rash Verified 10/22/18 15:20 Sulfa (Sulfonamide Allergy Rash Verified 10/22/18 15:20 Antibiotics) Home Medications: Home Medications Calcium Carbonate CHEW TAB* [Tums*] 500 mg PO DAILY PRN 10/22/18 [History Confirmed 10/22/18] PMH/Surg Hx/FS Hx/Imm Hx Endocrine/Hematology History: Denies: Hx Diabetes, Hx Thyroid Disease Cardiovascular History: Denies: Hx Hypertension Respiratory History: Denies: Hx Asthma, Hx Chronic Obstructive Pulmonary Disease (COPD) GI History: Reports: Hx Gall Bladder Disease - current visit, Hx Gastroesophageal Reflux Disease, Other GI Disorders - acute gastritis Denies: Hx Ulcer Sensory History: Denies: Hx Contacts or Glasses, Hx Hearing Aid Opthamlomology History: Denies: Hx Contacts or Glasses Neurological History: Reports: Hx Migraine Psychiatric History: Reports: Hx Anxiety - Surgical History Surgery Procedure, Year, and Place: ovarian cyst removed. . [facility] 2016 Infectious Disease History: No Infectious Disease History: Denies: Hx Clostridium Difficile, Hx Hepatitis, Hx Human Immunodeficiency Virus (HIV), Hx of Known/Suspected MRSA, History Other Infectious Disease, Traveled Outside the [place] in Last 30 Days - Family History Known Family History: Positive: Cardiac Disease, Hypertension, Diabetes Negative: Respiratory Disease, Seizure Disorder - Social History Alcohol Use: None Substance Use Type: Reports: None Smoking Status (MU): Light Every Day Tobacco Smoker Type: Cigarettes Amount Used/How Often: 1/2 ppd Length of Time of Smoking/Using Tobacco: since age 16 Have You Smoked in the Last Year: Yes Review of Systems Negative: Fever Negative: Chest Pain Negative: Shortness Of Breath Positive: Abdominal Pain, Vomiting, Nausea. Negative: Diarrhea All Other Systems Reviewed And Are Negative: Yes Physical Exam Triage Information Reviewed: Yes Vital Signs On Initial Exam: Initial Vitals Temp Pulse Resp BP Pulse Ox 98.9 F 87 14 149/97 99 10/22/18 15:16 10/22/18 15:16 10/22/18 15:16 10/22/18 15:16 10/22/18 15:16 Vital Signs Reviewed: Yes Appearance: Positive: Well-Appearing Skin: Positive: Warm, Dry Head/Face: Positive: Normal Head/Face Inspection Eyes: Positive: Normal, Conjunctiva Clear ENT: Positive: Pharynx normal Respiratory/Lung Sounds: Positive: Clear to Auscultation, Breath Sounds Present Cardiovascular: Positive: Normal, RRR Abdomen Description: Positive: Nontender, Soft Bowel Sounds: Positive: Present Musculoskeletal: Positive: Normal Neurological: Positive: Normal Psychiatric: Positive: Normal Diagnostics - Vital Signs Vital Signs Temp Pulse Resp BP Pulse Ox 10/22/18 15:16 98.9 F 87 14 149/97 99 - Laboratory Lab Results: Lab Results 10/22/18 Range/Units 16:12 WBC 7.9 (3.5-10.8) 10^3/uL RBC 3.98 (3.70-4.87) 10^6 /uL Hgb 12.0 (12.0-16.0) g/dL Hct 35 (35-47) % MCV 89 (80-97) fL MCH 30 (27-31) pg MCHC 34 (31-36) g/dL RDW 15 (10-15) % Plt Count 282 (150-450) 10^3/uL MPV 6.8 L (7.4-10.4) fL Neut % (Auto) 72.6 % Lymph % (Auto) 20.3 % [place] % (Auto) 4.3 % Eos % (Auto) 2.2 % Baso % (Auto) 0.6 % Absolute Neuts (auto) 5.7 (1.5-7.7) 10^3/ul Absolute Lymphs (auto) 1.6 (1.0-4.8) 10^3/ul Absolute Monos (auto) 0.3 (0-0.8) 10^3/ul Absolute Eos (auto) 0.2 (0-0.6) 10^3/ul Absolute Basos (auto) 0.0 (0-0.2) 10^3/ul Absolute Nucleated RBC 0.0 10^3/ul Nucleated RBC % 0.0 Result Diagrams: 10/22/18 16:12 10/22/18 16:12 Lab Statement: Any lab studies that have been ordered have been reviewed, and results considered in the medical decision making process. GIGU Course/Dx - Course Course Of Treatment: 48 year female presents with intermittent abdominal pain for the past couple weeks. She states that seems it worse. She has had some episodes of nausea and vomiting. She is not currently having the pain. She states it feels like a gas pain. pain is in the center abdomen. He states this feels similar when she had her gallbladder removed. She denies any fevers. No diarrhea or constipation. No urinary symptoms. States she has a history of gastritis and feels similar but never this extreme amount of pain. She tried some Zantac without any relief. She has a follow-up with GI soon. On exam nontender abdomen. White blood count normal. CRP normal. LFTs normal. Lipase normal. Discussed results with patient. Will place on course of omeprazole. Told to follow up with GI. Patient understands agrees with plan. - Diagnoses Differential Diagnoses - Female: Gastritis, Gastroenteritis (Viral), Pancreatitis Provider Diagnoses: Epigastric pain Discharge - Sign-Out/Discharge Documenting (check all that apply): Patient Departure Patient Received Moderate/Deep Sedation with Procedure: No - Discharge Plan Condition: Good Disposition: HOME Prescriptions: Omeprazole CAP (NF) [Prilosec CAP* 20 MG] 20 mg PO DAILY #14 Patient Education Materials: Epigastric Pain (ED) Referrals: Adalid Ragsdale, [facility] [Primary Care Provider] - Additional Instructions: Take omeprazole once a day Avoid acidic foods Stay upright for at least 30 mins after eating Follow up with GI Return to ED if develop any new or worsening symptoms - Billing Disposition and Condition Condition: GOOD Disposition: Home - Attestation Statements Provider Attestation: I was available for consult. This patient was seen by the [facility]. The patient was not presented to, seen by, or examined by me. -Felix
[2018-10-22 16:41] LABS: Albumin/Globulin Ratio 1.8 (1-3); BUN/Creatinine Ratio 21.5 (8-20); C Reactive Protein 5.65 mg/L (<8.01); Calcium 9.8 mg/dL (8.6-10.3); EGFR African American 118.7 (>60); EGFR Non-African American 98.1 (>60); Globulin 2.2 g/dL (2-4); Potassium 3.9 mmol/L (3.5-5.0); Total Bilirubin 0.4 mg/dL (0.2-1.0); Total Protein 6.2 g/dL (6.4-8.9)
[2018-10-22 16:43] LABS: HCG Pregnancy 1.41 mIU/mL
[2018-10-22 17:04] VITALS: BP 142/80
== END 2018-10-22 17:09 | disposition home or self-care (01) ==
LOC: ED 15:13
DX: R10.13 Epigastric pain (principal); F17.210 Nicotine dependence, cigarettes, uncomplicated; Z88.3 Allergy status to other anti-infective agents; Z88.0 Allergy status to penicillin; Z88.2 Allergy status to sulfonamides
CPT/HCPCS: 36415; 80053; 82150; 83605; 83690; 84702; 85025; 86140; 99282